=== PATIENT | female | born 1950 | race Caucasian/White ===

== ENCOUNTER 2021-07-09 10:03 | Outpatient (CLI) | payer MEDICARE, BC | END 2021-07-09 10:04 | disposition home or self-care (01) | LOC: CSHULT 10:03 | PROVIDERS: ATTEND Internal Medicine Gastroenterology | DX: R10.9 Unspecified abdominal pain (principal); K21.9 Gastro-esophageal reflux disease without esophagitis | CPT/HCPCS: 76700 ==

== ENCOUNTER → 2021-07-09 | Day surgery (SDC) | payer MEDICARE, BC ==
[2021-07-06 09:11] VITALS: BMI 23.2
[~2021-07-09] MED LIST: Lidocaine 1% MPF 2 ML VIAL ONE; PROPOFOL 20 ML ONE
== END ==
LOC: CSHSDC 09:00
PROVIDERS: ATTEND Internal Medicine Gastroenterology
PROC: 0DB68ZZ Excision of Stomach, Via Natural or Artificial Opening Endoscopic (ICD-10-PCS; principal; 2021-07-09)
DX: K21.9 Gastro-esophageal reflux disease without esophagitis (principal); R10.9 Unspecified abdominal pain; K31.7 Polyp of stomach and duodenum; K44.9 Diaphragmatic hernia without obstruction or gangrene; E03.9 Hypothyroidism, unspecified; F41.9 Anxiety disorder, unspecified
CPT/HCPCS: 88305; 88312; J2704

== ENCOUNTER 2022-11-19 11:54 | Outpatient (CLI) | payer MEDICARE, BC | END 2022-11-19 11:55 | disposition home or self-care (01) | LOC: CSHMAMMO 11:54 | PROVIDERS: ATTEND Internal Medicine | DX: Z12.31 Encounter for screening mammogram for malignant neoplasm of breast (principal) | CPT/HCPCS: 77063; 77067 ==